=== PATIENT | male | born 1980 | race Caucasian/White ===

== ENCOUNTER 2018-08-24 11:16 | Emergency (ER) | payer OTHER ==
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
[2018-08-24] MEDS ORDERED: KETOROLAC 30 MG/1 ML SDV IM ONE (11:44)
[2018-08-24] MEDS ORDERED: KETOROLAC 30 MG/1 ML SDV ONE (12:02)
[2018-08-24 13:04] VITALS: BP 132/69
--- NOTE | 2018-08-24 13:29 | ASMTCMCOM ---
CM Note CM Note Notes: CM spoke w/pt at bedside; pt states he has been staying at the [facility]. Pt states he has been having various issues with qualifying for a reserved bed (not able to complete/meet requirements for appts, etc. due to work commitments) and he says he sometimes does not stay there but sleeps outside. CM informed pt that the [facility] is open tonight so if he doesn't want to stay at [facility] tonight then he can stay at the [facility]. Pt states he is aware of where [facility] is located due to having completed Coordinated Entry there. Pt states he still needs to get his TB screening completed (last sy day to stay at [facility] is 08/29) but that every time he has presented during [facility]'s homeless drop-in hours at [facility] he says the [facility] staff "doesn't have the right supplies or something." This CM offered to call [facility] on Saturday 08/26 an schedule an appt for him and then call him (c: [phone]) to let him know of the appt day and time. Pt agreeable to this and appreciative of assistance. CM also provided pt w/local discount bus pass (pt has Medicare due to disability). 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 CM to call [facility] (and their Homeless Outreach RN Kaia) on Saturday 08/26 and then follow-up with pt. Date Signed: 08/24/2018 01:28 PM Electronically Signed By:Alexia Albert RN
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
== END 2018-08-24 13:01 | disposition home or self-care (01) ==
DX: S82.002A Unspecified fracture of left patella, initial encounter for closed fracture (principal); J32.2 Chronic ethmoidal sinusitis; J32.0 Chronic maxillary sinusitis; V13.4XXA Pedal cycle driver injured in collision with car, pick-up truck or van in traffic accident, initial encounter; Y93.55 Activity, bike riding
CPT/HCPCS: J1885; L1830